=== PATIENT | male | born 1985 | race Caucasian/White ===

== ENCOUNTER → 2021-04-09 10:35 | Outpatient (CLI) | payer OTHER, SELFPAY ==
--- NOTE | ~2021-04-09 | XR_ITS ---
XR shoulder LT min 2V 04/09/2021 10:47 INDICATION: Left shoulder pain PROCEDURE: 5 views left shoulder COMPARISON: No prior studies for comparison. FINDINGS: Fracture, dislocation or subluxation is not identified. There is anatomic alignment of the left shoulder. The soft tissues appear within normal limits. No foreign bodies are identified. IMPRESSION: 1: NO ACUTE BONE OR JOINT ABNORMALITY IDENTIFIED. Reviewed, dictated and finalized at location [facility] [employer]ANDARDS ASSOCIATE
== END ==
PROVIDERS: PCP Family Medicine; Visit Provider Family Medicine
DX: M25.512 Pain in left shoulder (principal)
CPT/HCPCS: 73030

== ENCOUNTER 2024-05-25 08:32 | Emergency (ER) | payer OTHER, SELFPAY ==
[2024-05-25 08:41] VITALS: BP 135/79; PULSE 80; RESP 18; TEMP 37.2; O2SAT 98
--- NOTE | 2024-05-25 08:45 | ED.URI ---
HPI - URI/Sore Throat General Chief Complaint: Upper Respiratory Infection Stated Complaint: sinus issues Time Seen by Provider: 05/25/24 08:45 Source: patient, RN notes reviewed and old records reviewed Mode of arrival: ambulatory Limitations: no limitations History of Present Illness HPI Narrative: 38-year-old male presents to the [facility] with sinus congestion, cough, congested ears, decreased hearing. Patient reports that symptoms started at [place] time over the last 2 to 2 and half weeks symptoms have a increased. States that he has tried different sinus medication, cold and flu medication with minimal relief patient also reports that the last 2-2 and half weeks has had increased fatigue Treatments prior to arrival: cold medicine Related Data Allergies Allergy/AdvReac Type Severity Reaction Status Date / Time No Known Allergies Allergy Verified 05/25/24 08:46 Review of Systems Review of Systems: All systems reviewed & are unremarkable except as noted in HPI and below Constitutional: Constitutional: Reports no additional constitutional complaints ENT: Reports as per HPI Cardiovascular: Cardiovascular: Reports no additional cardiovascular complaints, Denies chest pain and Denies dyspnea Respiratory: Respiratory: Reports no additional respiratory complaints, Denies chest congestion, Denies cough and Denies dyspnea Musculoskeletal: Musculoskeletal: Reports no additional musculoskeletal complaints Integumentary/Breasts: Skin/Breast: Reports system reviewed and no additional complaints, except as docu PMFSH Past Medical History Medical History Anxiety Depression Bipolar disorder Family History Family History Father Diabetes mellitus Cerebrovascular accident Social History Social History Smoking packs per day: 1 Smoking cigarettes per day: 20.0 Alcohol intake: current Alcohol use details: Beer once a month Substance use: never Living arrangements: alone Occupation/Education: occupation Additional occupation/education comments: [employer] Gender identity (if verbalized by the patient): Male Sexual Orientation (if Verbalized by the Patient): Straight or Heterosexual Comments At the time of my signature, I reviewed and agree with the nursing past medical, surgical, social, and family history. There is no relevant family history pertinent to the patient complaint. Exam Const: General: cooperative, healthy appearing, comfortable, no acute distress, well developed, alert and well nourished Nutritional Appearance: well nourished Orientation/consciousness: patient oriented x3 Limitations: no limitations HENMT: Head: normal to inspection Ears: hearing grossly normal bilaterally, external ears normal, EAC's normal, mastoids normal, no periauricular adenopathy and TM abnormal with fluid behind the TM bilateral Face/Nose/Sinus: Normal external nose present and Normal nasal mucous membranes and turbinates present Face and sinus: normal facial exam, face symmetric, no erythema and sinus tenderness Mouth: Yes Normal oral and palatal mucosa present, Yes lip normal, Yes tongue normal and Yes moist mucous membranes Throat: posterior oropharynx normal, uvula midline and no uvular edema Eyes: General: appearance normal, both eyes and all related structures Alignment and Position: alignment normal Neck: Neck: normal visual inspection, full ROM, no lymphadenopathy and no meningeal signs Chest: Chest palpation & inspection: normal inspection of the chest Resp: Effort & Inspection: normal respiratory effort and able to speak in complete sentences Auscultation: clear to auscultation bilaterally, no crackles, no rales, no rhonchi and no wheezes Cardio: Rate: regular rate Skin: General skin exam: normal color and no rashes or lesions noted Neuro: General: patient oriented x3, gait normal, moves all extremities and no meningeal signs Cognition (Neuro): normal cognition Speech: normal speech Gait exam (Neuro): Normal gait present Extrem: General: normal to inspection, full ROM, capillary refill normal and normal gait Psych: Appearance: grossly normal and well kempt Mental Status: mental status grossly normal Speech and movement: Normal speech and movement present and Clear speech present Affect: normal affect Attitude: cooperative Course Course Level of Care: Express Care Visit Vital Signs Vital signs: Vital Signs Temperature 98.9 F 05/25/24 08:41 Pulse Rate 80 05/25/24 08:41 Respiratory Rate 18 05/25/24 08:41 Blood Pressure 135/79 05/25/24 08:41 Pulse Oximetry 98 05/25/24 08:41 Oxygen Delivery Room Air 05/25/24 08:41 Temperature 98.9 F 05/25/24 08:41 Pulse Rate 80 05/25/24 08:41 Respiratory Rate 18 05/25/24 08:41 Blood Pressure 135/79 05/25/24 08:41 Pulse Oximetry 98 05/25/24 08:41 Oxygen Delivery Room Air 05/25/24 08:41 Reviewed MDM - URI/Sore Throat MDM Narrative Medical decision making narrative: patient sitting in exam room. Nontoxic, vitals stable. Patient presents with URI symptoms, that started approximately 2-3 months ago, worse over the last 2 weeks. Will cover with antibiotic, steroid. Discussed [id number] products to try as well. Encouraged patient to follow-up with primary care provide work note provided. Discharge instructions reviewed with patient, as well as provided in writing per nursing staff. The instructions also include specific and strict return/GO TO THE ER as well as f/u information. All questions have been answered, and the patient deny any further questions with discharge and discharge plan. Some parts of this dictation were generated by voice recognition software and may contain typographical and/or grammatical inaccuracies. Differential Diagnosis Differential diagnosis: Likely upper respiratory infection, otitis media, sinusitis, viral infection, bronchitis, influenza and pharyngitis Critical Care Time Critical Care Time Critical Care Time: No Discharge Plan Discharge Clinical Impression: Bronchitis Sinusitis Qualifiers: Sinusitis location: pansinusitis Chronicity: acute Recurrence: not specified as recurrent Qualified Code(s): J01.40 - Acute pansinusitis, unspecified Patient Disposition: Home, Self-Care Condition: Stable Instructions: Antibiotic Form, Sinusitis (ED), Acute Bronchitis (ED) Additional Instructions: It is very important to treat your symptoms. Drink plenty of water, Gatorade, Pedialyte, ice pops or Jell-O. -Alternate Tylenol and Motrin per package directions for fever or pain. You can alternate every 4 hours -Antihistamine medication such as Zyrtec/Claritin/Melani during the day can help improve symptoms. -doing daily nasal irrigations can help relieve pressure your sinuses. Things like a Neti pot -Use Flonase twice a day for 5 days then daily to help reduce the inflammation and dry up your sinuses. -You can also use Mucinex. Be sure to drink plenty of water with this medication at least 8 ounces with every dose and it is important to drink 8 to 10 glasses of water per day. Water is a natural decongestant -Eat and drink things that are easy to swallow, like tea or soup, or popsicles. -Oral rinses such as: Salt water gargles and/or may use topical anesthetic (eg. Chloraseptic spray) or lozenges to relieve dryness or throat pain). -Frequent hand washing or hand fixed income manager is one of the best ways to prevent spread of infection. -Using a vaporizer or humidifier at night will also help thin secretions and help with coughing up phlegm. -Follow up with primary care provider in 7-10 days if condition is not improving - For new or worsening symptoms go directly to the nearest ER Patient Language: Samoan Prescriptions: New doxycycline monohydrate 100 mg tablet 100 mg PO BID Qty: 14 0RF prednisone 50 mg tablet 50 mg PO DAILY Qty: 7 0RF Follow-up/Referrals: Preeti Gomez DO [Physician] - 2 Weeks (express care follow up) PHYSICIAN,COMMUNICATIONS STATION MANAGER [Primary Care Provider] - Stand Alone Forms: Work/School Release IP Time of Disposition: 08:58
--- OUTSIDE RECORDS SUMMARY | 2024-05-25 08:50 | XMS_ITS | Clinical Summary ---
Author Organization [facility] Address [address] [place] [id number] Care Team Providers Care Practice Performance Manager Name Role Phone Gary Funes MD Primary Care Provider [phone] Allergies No known active allergies Medications vitamin D2, ergocalciferol, 78730 UNITS capsuleIndicati ons:Vitamin D deficiency Take 1 capsule (50,000 Units total) by mouth once a week for 12 doses. 12 capsule 03/29/2019 Active escitalopram 10 MG tabletIndicatio ns:Reactive depression,Seas onal affective disorder Take 1 tablet (10 mg total) by mouth daily. 90 tablet 1 05/17/2019 Active tamsulosin 0.4 MG CapIndications: Flank pain, acute Take 1 capsule (0.4 mg total) by mouth daily. 14 capsule 07/23/2019 Active methocarbamol 750 MG TabIndications: Flank pain, acute Take 2 tablets (1,500 mg total) by mouth 3 (three) times daily. 90 tablet 1 07/23/2019 Active predniSONE 10 mg tabletIndicatio ns:Colitis 4 tablets x 4 days; 3 tab x 3 days; 2 tab x 2 days; 1 tab x 1 day 30 tablet 08/01/2019 Active propranolol 40 MG tabletIndicatio ns:Headache associated with sexual activity Consider taking 1-2 tabs by mouth 30-60 minutes prior to sexual activity. 30 tablet 1 12/18/2019 Active indomethacin 50 MG capsuleIndicati ons:Headache associated with sexual activity TAKE 1 CAP WITH ONSET OF HEADACHE, OR PREVENTATIVEL Y, 30-60 MINUTES PRIOR TO SEXUAL ACTIVITY. 30 capsule 01/24/2020 Active Active Problems Problem Noted Date Diagnosed Date Diarrhea 08/28/2019 Overview (08/28/2019): Added automatically from request for surgery [id number] Small bowel obstruction ([facility]) 2019 Vitamin D deficiency 03/29/2019 Seasonal affective disorder 03/29/2019 Reactive depression 03/29/2019 BMI 40.0-44.9, adult 06/30/2017 Nicotine dependence 06/30/2017 Family History Medical History Relation Comments CVA Father Diabetes Father Relation Status Comments Father Mother Alive Social History Tobacco Use Types Packs/Day Years Used Date Smoking Tobacco: Every Day Cigarettes 1 15 Smokeless Tobacco: Never Alcohol Use Standard Drinks/Week Comments Yes 0 (1 standard drink = 0.6 oz pur e alcohol) socially PHQ-2 Answer Date Recorded PHQ-2 Score 2 03/26/2019 Sex and Gender Information Value Date Recorded Sex Assigned at Male 07/30/2019 1:15 PM CDT Legal Sex Male 9:40 PM CDT Gender Identity Male 07/30/2019 1:15 PM CDT Sexual Orientation Straight 07/30/2019 1: 15 PM CDT Last Filed Vital Signs Vital Sign Reading Time Taken Comments Blood Pressure 136/72 12/18/2019 9:12 AM CDT Pulse 81 12/18/2019 9:12 AM CDT Temperature 36.4 C (97.6 F) 12/18/2019 9:12 AM CDT Respiratory Rate 20 12/18/2019 9:12 AM CDT Oxygen Saturation 98% 12/18/2019 9:12 AM CDT Inhaled Oxygen Concentration - - Weight 165.1 kg (364 lb) 12/18/2019 9:12 AM CDT Height 193 cm (6' 4 ) 12/18/2019 9:12 AM CDT Body Mass Index 44.31 12/18/2019 9:12 AM CDT Plan of Treatment Health Maintenance Due Date Last Done Comments Annual Physical 1989 Pneumococcal Vaccine: Pediat rics (0 to 5 Years) and At-Risk Patients (6 to 64 Years) (1 of 2 - PCV) 1992 Hepatitis C 2004 DTaP, Tdap and Td Vaccines ( 1 - Tdap) 2005 Hepatitis B Vaccines (1 of 3 - 19+ 3-dose series) 2005 COVID-19 Vaccine ( - 2023-2 5 season) 2023 Influenza Adult (#1) 2023 HPV Vaccines Aged Out No longer eligi ble based on patient's age to complete this topic Meningococcal B Vaccine Aged Out No l onger eligible based on patient's age to complete this topic Meningococcal Vaccine Aged Out No rodolfo jenn eligible based on patient's age to complete this topic RSV Immunizations Under 20 Months Aged Out No longer eligible based on patient's age to complete this topic Insurance Advance Directives * Full Code (Latest Code Status on File) Date Activated Date Inactivated Comments 05/09/2019 3:08 PM 05/11/2019 6:02 PM Care Teams Practice Performance Manager Relationship Specialty Start Date End Date Gary Funes MD PCP - General INTERNAL MEDICINE 01/30/19
== END 2024-05-25 09:05 | disposition home or self-care (01) ==
PROVIDERS: Emergency Provider Nurse Practitioner; Referring Provider Emergency Medicine
DX: J40 Bronchitis, not specified as acute or chronic (principal); J01.40 Acute pansinusitis, unspecified; F17.210 Nicotine dependence, cigarettes, uncomplicated
CPT/HCPCS: 99213; G0463

== ENCOUNTER 2024-05-26 09:38 | Emergency (ER) | payer OTHER, SELFPAY ==
--- OUTSIDE RECORDS SUMMARY | 2024-05-26 09:41 | XMS_ITS | Clinical Summary ---
Author Organization [facility] Address [address] [place] [id number] Care Team Providers Care Metal Riveting Machine Operator Name Role Phone Gary Funes MD Primary Care Provider [phone] Allergies No known active allergies Medications vitamin D2, ergocalciferol, 96832 UNITS capsuleIndicati ons:Vitamin D deficiency Take 1 [...] (08/28/2019): Added automatically from request for surgery [id number] Small bowel obstruction ([facility]) 2019 Vitamin D deficiency 03/29/2019 Seasonal affective [...] 3:08 PM 05/11/2019 6:02 PM Care Teams Metal Riveting Machine Operator Relationship Specialty Start Date End Date Gary Funes MD PCP - General INTERNAL MEDICINE 01/30/19
[2024-05-26 09:44] VITALS: BP 128/69; PULSE 75; RESP 18; TEMP 36.7; O2SAT 97
--- NOTE | 2024-05-26 09:57 | ED.GENADULT ---
HPI - General Adult General Chief complaint: Unspecified Stated complaint: work note History of Present Illness HPI narrative: 38-year-old male presents today for work note. Patient was seen here yesterday diagnosed with acute sinusitis given antibiotics and a steroid. 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 Yesterday they did give him 3 days off but his job will not except that note he needs a note for every day that he needs off. The patient still with continued symptoms of ear pain and pressure sinus congestion and just generally not feeling well. Patient states he feels no better than he did yesterday but he did start his prescriptions yesterday. Related Data Allergies Allergy/AdvReac Type Severity Reaction Status Date / Time No Known Allergies Allergy Verified 05/26/24 09:44 Review of Systems Review of Systems: All systems reviewed & are unremarkable except as noted in HPI and below Eyes: Eyes: Reports as per HPI ENT: Reports as per HPI Cardiovascular: Cardiovascular: Reports as per HPI Respiratory: Respiratory: Reports as per HPI Genitourinary: Genitourinary: Reports as per HPI Musculoskeletal: Musculoskeletal: Reports as per HPI Integumentary/Breasts: Skin/Breast: Reports as per HPI Neurologic: Reports as per HPI Psychiatric: Psychiatric: Reports as per HPI Endocrine: Endocrine: Reports as per HPI Hematologic/Lymphatic: Hematologic/Lymphatic: Reports as per HPI Allergic/Immunologic: Allergic/Immunologic: Reports as per HPI PMFSH Past Medical History Medical History Anxiety Depression Bipolar disorder Family History Family History Father Diabetes mellitus Cerebrovascular accident Social History Social History Smoking packs per day: 1 Smoking cigarettes per day: 20.0 Alcohol intake: current Alcohol use details: Beer once a month Substance use: never Living arrangements: alone Occupation/Education: occupation Additional occupation/education comments: [employer] Gender identity (if verbalized by the patient): Male Sexual Orientation (if Verbalized by the Patient): Straight or Heterosexual Exam Const: General: cooperative, healthy appearing, comfortable, no acute distress and well developed Orientation/consciousness: patient oriented x3 HENMT: Head: normal to inspection Eyes: General: appearance normal, both eyes and all related structures Resp: Effort & Inspection: normal respiratory effort and able to speak in complete sentences Auscultation: clear to auscultation bilaterally Cardio: Rate: regular rate Rhythm: regular rhythm Heart sounds: S1 normal heart sound present and S2 normal heart sound present Skin: General skin exam: normal color Neuro: General: patient oriented x3 Cognition (Neuro): normal cognition Speech: normal speech Psych: Mental Status: mental status grossly normal Course Course Level of Care: Express Care Visit Vital Signs Vital signs: Vital Signs Temperature 98.1 F 05/26/24 09:44 Pulse Rate 75 05/26/24 09:44 Respiratory Rate 18 05/26/24 09:44 Blood Pressure 128/69 05/26/24 09:44 Pulse Oximetry 97 05/26/24 09:44 Oxygen Delivery Room Air 05/26/24 09:44 Temperature 98.1 F 05/26/24 09:44 Pulse Rate 75 05/26/24 09:44 Respiratory Rate 18 05/26/24 09:44 Blood Pressure 128/69 05/26/24 09:44 Pulse Oximetry 97 05/26/24 09:44 Oxygen Delivery Room Air 05/26/24 09:44 Medical Decision Making MDM Narrative Medical decision making narrative: 38-year-old HPI is noted. Differentials acute sinusitis, viral infection. Patient currently being treated for acute sinusitis but does need a work note for today. Again his work note that was given to him yesterday was for 3 days but his work will not take that. Will add on his Zyrtec D to help dry up symptoms and hopefully help decrease congestion. Medical Records Medical records reviewed: Yes I reviewed the external patient's medical records. Vital Signs Vital Signs: Vital Signs Temperature 98.1 F 05/26/24 09:44 Pulse Rate 75 05/26/24 09:44 Respiratory Rate 18 05/26/24 09:44 Blood Pressure 128/69 05/26/24 09:44 Pulse Oximetry 97 05/26/24 09:44 Oxygen Delivery Room Air 05/26/24 09:44 Temperature 98.1 F 05/26/24 09:44 Pulse Rate 75 05/26/24 09:44 Respiratory Rate 18 05/26/24 09:44 Blood Pressure 128/69 05/26/24 09:44 Pulse Oximetry 97 05/26/24 09:44 Oxygen Delivery Room Air 05/26/24 09:44 Discharge Plan Discharge Clinical Impression: Sinusitis Qualifiers: Chronicity: acute Patient Disposition: Home, Self-Care Condition: Stable Instructions: Antibiotic Form, Sinusitis (ED), Allergies (ED) Patient Language: Kinyarwanda Prescriptions: New cetirizine-pseudoephedrine [Zyrtec-D] 5-120 mg tablet extended release 12 hr 1 tablet PO Q12H PRN (Reason: nasal congestion) Qty: 30 0RF No Action doxycycline monohydrate 100 mg tablet 100 mg PO BID Qty: 14 0RF prednisone 50 mg tablet 50 mg PO DAILY Qty: 7 0RF Follow-up/Referrals: PHYSICIAN,PLANTING MATERIAL CARRIER [Primary Care Provider] - Stand Alone Forms: Work/School Release IP Time of Disposition: 09:54
== END 2024-05-26 09:58 | disposition home or self-care (01) ==
PROVIDERS: Emergency Provider Nurse Practitioner Family; Referring Provider Emergency Medicine
DX: J01.90 Acute sinusitis, unspecified (principal); F17.210 Nicotine dependence, cigarettes, uncomplicated
CPT/HCPCS: 99213; G0463